=== PATIENT | female | born 1955 | race Caucasian/White ===

== ENCOUNTER 2016-10-01 14:25 | Emergency (ER) | payer OTHER ==
[2016-10-01] MEDS ORDERED: IPRATROPIUM/ALBUTEROL 3 ML DEYVIAL IH ONE ×2 (14:31→15:24)
--- NOTE | 2016-10-01 14:45 | EDPHY ---
H & P <Lance Hylton - Last Filed: 10/01/16 20:18> Stated Complaint: SOB this am .URI for last week. - Personal History Current Tetanus/Diphtheria Vaccine: Unsure Current Tetanus Diphtheria and Acellular Pertussis (TDAP): Unsure Tetanus Vaccine Date: 3 years ago, unsure if diptheia - Medical/Surgical History Hx Asthma: No Hx Chronic Respiratory Disease: No Hx Diabetes: No Hx Cardiac Disease: No Hx Renal Disease: No Hx Cirrhosis: No Hx Alcoholism: No Hx HIV/AIDS: No Hx Splenectomy or Spleen Trauma: No Other PMH: HYpothyroidism, RA, chronic regional pain syndrome. PSH: left knee replaced - Social History Smoking Status: Former smoker <Dina Peterson - Last Filed: 10/01/16 23:08> Time Seen by Provider: 10/01/16 14:35 HPI/ROS: CHIEF COMPLAINT: Shortness of breath, upper respiratory infection HISTORY OF PRESENT ILLNESS: This is a 61-year-old female who states that for the last 12 days she has been ill with ongoing upper respiratory infection symptoms. Nasal congestion, nasal discharge, and cough productive of sputum. She has been running a low-grade fever. She has not seen her primary care physician. She had some vomiting at the beginning of the illness but none for quite some time. She does report that over the last 2-3 days she did not have a fever. She says she has been in bed for most of the last week and half. This morning, the patient developed acute shortness of breath. She reports being unable to even walk into the kitchen. Complaining of generalized weakness. Reports bilateral lower chest discomfort. Also complains of at deep achy pain in her legs like she has lactic acidosis. Patient denies diarrhea, urinary complaints, headache, lightheadedness, syncope , palpitations. REVIEW OF SYSTEMS: Aside from elements discussed in the HPI, a comprehensive 10-point review of systems was reviewed and is negative. PAST MEDICAL HISTORY: Rheumatoid arthritis. Denies COPD, asthma, pulmonary issues, coronary artery disease. SOCIAL HISTORY: Nonsmoker. Sharron Marin is her primary care physician. VITAL SIGNS Reviewed by me. GENERAL: Ill-appearing female. Tachypneic. Audibly wheezing. Very short of breath exertion. HEENT: Atraumatic. Eyes: No icterus, no injection. Mouth: Slightly dry mucous membranes. No erythema or lesions. Neck: supple with no adenopathy. LUNGS: Rhonchi at the right base. Wheezing on the right. Coarse breath sounds on the left. CARDIAC: Tachycardic rate. ABDOMEN: Soft, nontender, nondistended, bowel sounds normal. BACK: No CVA tenderness. EXTREMITIES: No trauma. No edema. Range of motion is normal throughout. NEURO: Alert and oriented, grossly nonfocal. SKIN: Warm and dry, no rash. PSYCHIATRIC: Normal mentation, no agitation. (Dina Peterson) Constitutional: Initial Vital Signs Temperature (C) 36.6 C 10/01/16 14:30 Heart Rate 120 H 10/01/16 14:30 Respiratory Rate 24 H 10/01/16 14:30 Blood Pressure 120/89 H 10/01/16 14:30 O2 Sat (%) 97 10/01/16 14:30 O2 Delivery Mode Room Air O2 (L/minute) 2.5 Allergies/Adverse Reactions: prochlorperazine edisylate [From Compazine] Allergy (Verified 10/01/16 14:34) prochlorperazine maleate [From Compazine] Allergy (Verified 10/01/16 14:34) Home Medications: Medication Instructions Recorded Levothyroxine [Synthroid 112 mcg 119 mcg PO DAILY06 07/10/11 (RX)] Leflunomide [Arava 10 mg (RX)] 09/08/12 buPROPion XL [Wellbutrin 150mg XL] 450 mg PO DAILY 09/08/12 Rituxan 05/20/15 Albuterol [Proventil Inhaler] 1 - 2 puffs IH Q4H #1 mdi 10/01/16 levOFLOXACIN [levAQUIN] 750 mg PO DAILY #10 tab 10/01/16 predniSONE 60 mg PO DAILY #15 tab 10/01/16 Medical Decision Making - Diagnostics Imaging: 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 Please see trace view for full reading and report. Sinus rhythm, no acute ischemic changes ( Lance Hylton) Imaging Results: Imaging Impressions Chest X-Ray 10/01/16 14:44 Impression: Stable negative chest. Chest/Thorax CTA 10/01/16 15:33 Impression: 1. No evidence for pulmonary embolus. 2. Mild bronchitis. Mild bronchial plugging in both lower lobes and right middle lobe. Results called and discussed with Dr. Lance Hylton on 10/01/2016 at 1632 hours. ED Course/Re-evaluation: The patient's care is transferred to [place] at shift change. She remains tachycardic and hypoxic. She has coarse right lower lobe breath sounds but a clear x-ray. She complains of a mild fever at home. She has been lying in bed for several days. I will perform a CT scan to rule out PE and further evaluate for pneumonia. A 2nd lactate, antibiotics and fluids have been ordered. She has also been treated with a nebulized her with moderate improvement. She denies history of COPD or asthma. 4:40 p.m. we discussed the patient's CT results which are reassuring. She is on antibiotics. She is doing much better after her 2nd neb and is saturating 97 % on 4 L. I recommended admission for her tachypnea and hypoxia and tachycardia. Patient declines this and states that she wants to avoid going into the hospital. We will see if she is able to titrate off of oxygen and continue to evaluate. 6:00 p.m. the patient is doing much better. She is saturating 92-95% on room air. She was able to walk and did not desaturate. She continues to refuse admission. She was slightly tachycardic with ambulation but then it resolved. Will discharge her with albuterol, steroids and Levaquin. We discussed strict return precautions. (Lance Hylton) 61-year-old female who is been ill with upper respiratory infection for 12 days now presenting with significant shortness of breath, tachycardia, febrile, tachypneic, or rhonchi at the right base. Patient had a neb started. IV was placed. 2 L of normal saline was administered. EKG was obtained. Laboratory evaluation including CBC, chemistries, and lactic acid were ordered. Chest x-ray was ordered Patients presentation is concerning for acute sepsis. Patients' lactic acid was 3.0. No pneumonia visualized on CXR. Care assumed by Dr Hylton at change of shift. (Dina Peterson) Differential Diagnosis: Partial list of the Differential diagnosis considered include but were not limited to; PE, pneumonia, bronchitis and although unlikely based on the history and physical exam, I also considered pneumothorax, acute coronary disease, dissection. I discussed these differential diagnoses and the plan with the patient as well as the usual and expected course. The patient understands that the diagnosis is provisional and that in medicine we are not always correct and that further workup is often warranted. Usual and customary warnings were given. All of the patient's questions were answered. The patient was instructed to return to the emergency department should the symptoms at all worsen or return, otherwise to followup with the physician as we discussed. (Lance Hylton) - Data Points Laboratory Results: Laboratory Results 10/01/16 15:00 10/01/16 15:00 10/01/16 10/01/16 10/01/16 16:20 15:00 15:00 WBC RBC Hgb Hct MCV MCH MCHC RDW Plt Count MPV Neut % (Auto) Lymph % (Auto) [place] % (Auto) Eos % (Auto) Baso % (Auto) Nucleat RBC Rel Count Absolute Neuts (auto) Absolute Lymphs (auto) Absolute Monos (auto) Absolute Eos (auto) Absolute Basos (auto) Absolute Nucleated RBC Immature Gran % Immature Gran # PT 12.7 SEC SEC (12.0-15.0) INR 0.98 (0.83-1.16) APTT 29.2 SEC SEC (23.0-38.0) D-Dimer VBG Lactic Acid 1.2 mmol/L D mmol/L (0.7-2.1) Sodium 140 mEq/L mEq/L (134-144) Potassium 3.9 mEq/L mEq/L (3.5-5.2) Chloride 104 mEq/L mEq/L (97-110) Carbon Dioxide 20 mEq/l L mEq/l (22-31) Anion Gap 16 mEq/L mEq/L (8-16) BUN 6 mg/dL L mg/dL (7-23) Creatinine 0.7 mg/dL mg/dL (0.6-1.0) Estimated GFR > 60 Glucose 110 mg/dL H mg/dL (70-100) Calcium 9.4 mg/dL mg/dL (8.5-10.4) Total Bilirubin 0.4 mg/dL mg/dL (0.1-1.4) Troponin I < 0.012 ng/mL ng/mL (0-0.034) 10/01/16 10/01/16 10/01/16 15:00 15:00 14:37 WBC 8.57 10^3/uL 10^3/uL (3.80-9.50) RBC 4.54 10^6/uL 10^6/uL (4.18-5.33) Hgb 14.4 g/dL g/dL (12.6-16.3) Hct 42.5 % % (38.0-47.0) MCV 93.6 fL fL (81.5-99.8) MCH 31.7 pg pg (27.9-34.1) MCHC 33.9 g/dL g/dL (32.4-36.7) RDW 13.2 % % (11.5-15.2) Plt Count 382 10^3/uL D 10^3/uL (150-400) MPV 9.1 fL fL (8.7-11.7) Neut % (Auto) 63.8 % % (39.3-74.2) Lymph % (Auto) 23.3 % % (15.0-45.0) [place] % (Auto) 10.4 % % (4.5-13.0) Eos % (Auto) 1.5 % % (0.6-7.6) Baso % (Auto) 0.6 % % (0.3-1.7) Nucleat RBC Rel Count 0.0 % % (0.0-0.2) Absolute Neuts (auto) 5.47 10^3/uL 10^3/uL (1.70-6.50) Absolute Lymphs (auto) 2.00 10^3/uL 10^3/uL (1.00-3.00) Absolute Monos (auto) 0.89 10^3/uL H 10^3/uL (0.30-0.80) Absolute Eos (auto) 0.13 10^3/uL 10^3/uL (0.03-0.40) Absolute Basos (auto) 0.05 10^3/uL 10^3/uL (0.02-0.10) Absolute Nucleated RBC 0.00 10^3/uL 10^3/uL (0-0.01) Immature Gran % 0.4 % % (0.0-1.1) Immature Gran # 0.03 10^3/uL 10^3/uL (0.00-0.10) PT INR APTT D-Dimer < 0.27 ug/mLFEU ug/mLFEU (0.00-0.50) VBG Lactic Acid 3.0 mmol/L H mmol/L (0.7-2.1) Sodium Potassium Chloride Carbon Dioxide Anion Gap BUN Creatinine Estimated GFR Glucose Calcium Total Bilirubin Troponin I Medications Given: Discontinued Medications Albuterol (Proventil Neb) 3 ml IH EDNOW ONE Stop: 10/01/16 15:38 Last Admin: 10/01/16 15:44 Dose: 3 ml Albuterol/Ipratropium (Duoneb) 3 ml IH EDNOW ONE Stop: 10/01/16 14:32 Last Admin: 10/01/16 14:36 Dose: 3 ml Albuterol/Ipratropium (Duoneb) 3 ml IH EDNOW ONE Stop: 10/01/16 15:25 Last Admin: 10/01/16 15:24 Dose: 3 ml Levofloxacin/Dextrose (Levaquin 750 Mg (Premix)) 150 mls @ 100 mls/hr IV EDNOW ONE PRN Reason: Protocol Stop: 10/01/16 16:54 Last Admin: 10/01/16 16:11 Dose: 150 mls Sodium Chloride (Ns) 2,000 mls @ 4,000 mls/hr 30 ml/kg infuse over 30 min ( 2000 ml) IV EDNOW ONE PRN Reason: Protocol Stop: 10/01/16 15:54 Last Admin: 10/01/16 14:50 Dose: 2,000 mls Methylprednisolone Sodium Succinate (Solu-Medrol) 125 mg IVP EDNOW ONE Stop: 10/01/16 15:23 Last Admin: 10/01/16 16:00 Dose: 125 mg Departure <Lance Hylton E - Last Filed: 10/01/16 20:18> <Dina Peterson - Last Filed: 10/01/16 23:08> - Departure Disposition: Home, Routine, Self-Care Clinical Impression: Acute bronchitis Qualifiers: Bronchitis organism: unspecified organism Qualified Code(s): J20.9 - Acute bronchitis, unspecified Condition: Fair Instructions: Acute Bronchitis (ED) Referrals: Sharron Marin MD [Primary Care Provider] - As per Instructions Prescriptions: Albuterol [Proventil Inhaler] 1 - 2 puffs IH Q4H #1 mdi levOFLOXACIN [levAQUIN] 750 mg PO DAILY #10 tab predniSONE 60 mg PO DAILY #15 tab
[2016-10-01 15:07] LABS: % IMMATURE GRANULYOCYTES 0.4 % (0.0-1.1); ABSOLUTE IMMATURE GRANULOCYTES 0.03 10^3/uL (0.00-0.10); ADD DIFF? NO; ADD MORPH? NO; ADD SCAN? NO; ATYPICAL LYMPHOCYTE FLAG 0 (0-99); FRAGMENT RBC FLAG 0 (0-99); HEMATOCRIT 42.5 % (38.0-47.0); HEMOGLOBIN 14.4 g/dL (12.6-16.3); LEFT SHIFT FLG 0 (0-99); LIPEMIA HEMOLYSIS FLAG 90 (0-99); MEAN CELL HEMOGLOBIN 31.7 pg (27.9-34.1); MEAN CELL HEMOGLOBIN CONCENTR. 33.9 g/dL (32.4-36.7); MEAN CELL VOLUME 93.6 fL (81.5-99.8); MEAN PLATELET VOLUME 9.1 fL (8.7-11.7); PLATELET CLUMPS FLAG 10 (0-99); PLATELET COUNT 382 10^3/uL (150-400); RED BLOOD CELL COUNT 4.54 10^6/uL (4.18-5.33); RED CELL DISTRIBUTION WIDTH 13.2 % (11.5-15.2)
[2016-10-01] MEDS ORDERED: IPRATROPIUM/ALBUTEROL 3 ML DEYVIAL ONE (15:16)
[2016-10-01 15:20] LABS: ANION GAP 16 mEq/L (8-16); BILIRUBIN,TOTAL 0.4 mg/dL (0.1-1.4); CALCIUM 9.4 mg/dL (8.5-10.4); CARBON DIOXIDE 20 mEq/l (22-31); CHLORIDE 104 mEq/L (97-110); CREATININE 0.7 mg/dL (0.6-1.0); GLOMERULAR FILTRATION RATE > 60; GLUCOSE 110 mg/dL (70-100); POTASSIUM 3.9 mEq/L (3.5-5.2); SODIUM 140 mEq/L (134-144)
[2016-10-01] MEDS ORDERED: methylPREDNISolone SOD SUCC 125 MG/2 ML VIAL IVP ONE (15:22)
[2016-10-01 15:23] LABS: INR 0.98 (0.83-1.16); PROTIME(PATIENT) 12.7 SEC (12.0-15.0)
[2016-10-01 15:24] LABS: APTT 29.2 SEC (23.0-38.0)
[2016-10-01] MEDS ORDERED: NS 2,000 ML IV ONE (15:25)
--- NOTE | 2016-10-01 15:25 | CPEKG ---
Heart Rate: 99 RR Interval: 606 P-R Interval: 140 QRSD Interval: 94 QT Interval: 336 QTC Interval: 432 P [place]: 75 QRS [place]: 46 T Wave [place]: 36 EKG Severity - BORDERLINE ECG - EKG Impression: SINUS RHYTHM EKG Impression: PROBABLE LEFT ATRIAL ABNORMALITY Electronically Signed By: Lance Hylton 01-Oct-2016 15:42:52
[2016-10-01 15:33] LABS: TROPONIN I < 0.012 ng/mL (0-0.034)
[2016-10-01] MEDS ORDERED: ALBUTEROL 3 ML DEYVIAL ONE (15:36)
[2016-10-01] MEDS ORDERED: ALBUTEROL 3 ML DEYVIAL IH ONE (15:37)
[2016-10-01] MEDS ORDERED: IOPAMIDOL (ISOVUE 370) 100 ML BTL IV ONE (15:44)
[2016-10-01 17:17] VITALS: PULSE 100
[2016-10-01 18:53] VITALS: BP 119/69; RESP 16; TEMP 97.5; O2SAT 96
== END 2016-10-01 18:18 | disposition home or self-care (01) ==
LOC: CED 14:25
DX: J20.9 Acute bronchitis, unspecified (principal); Z87.891 Personal history of nicotine dependence
CPT/HCPCS: 71020-PO; 71275-PO; 80048-PO; 82247-PO; 83605-PO; 84484-PO; 85025-PO; 85378-PO; 85610-PO; 85730-PO; 96365; J1956; Q9967

== ENCOUNTER 2017-06-06 18:10 | Emergency (ER) | payer OTHER ==
[2017-06-06 18:18] VITALS: TEMP 99.1
[2017-06-06] MEDS ORDERED: ONDANSETRON 4 MG/2 ML VIAL IVP ONE (18:21)
[2017-06-06] MEDS ORDERED: NS 1,000 ML IV ONE ×2 (18:21→18:59)
--- NOTE | 2017-06-06 18:40 | EDPHY ---
H & P Time Seen by Provider: 06/06/17 18:15 HPI/ROS: HPI Urinary complaints. 61-year-old female by private vehicle. This patient reports that she developed increased frequency with urination as well as dysuria on . She reports that this worsened and then yesterday she started having some pain in her left flank area. This was followed by continued symptoms today with associated nausea and vomiting. ROS: Constitutional: No fever, no chills. No weakness. Eyes: No discharge. No changes in vision. ENT: No sore throat. No nasal congestion or rhinorrhea. Respiratory: No cough. No shortness of breath. Cardiac: No chest pain, no palpitations. Gastrointestinal: No abdominal pain, no vomiting, no diarrhea. Genitourinary: No hematuria. As above. Musculoskeletal: As above. No neck pain. No myalgias or arthralgias. Skin: No rashes. Neurological: Mild gradual onset headache today. No focal weakness or altered sensation. Past medical history: Hypothyroidism, rheumatoid arthritis, chronic regional pain syndrome, depression. Left knee replacement. Social history: Nonsmoker. No alcohol. 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 Physical Exam: General Appearance: Alert, not in distress but anxious. This patient is responding to questions appropriately and in full sentences. This patient appears well-hydrated and well-nourished. Eyes: Pupils equal and round no pallor or injection. No lid edema, erythema or injection. Respiratory: There are no retractions, lungs are clear to auscultation with good air movement bilaterally. Cardiovascular: Regular rate and rhythm. Borderline tachycardia. No murmur. Gastrointestinal: Abdomen is soft and nontender, no masses, bowel sounds normal. No focal tenderness at McBurney's point. No Abraham sign. Neurological: Motor sensory function is grossly intact. Cranial nerves are normal. Gait is normal. Skin: Warm and dry, no rashes. Musculoskeletal: Neck is supple and nontender. Mild left-sided CVA tenderness on palpation. No right-sided CVA tenderness on palpation. Extremities are symmetrical. All joints range without pain or impingement. Psychiatric: No agitation. No depression. Database: EKG: Imaging: Procedures: Emergency department course: IV placed. Vital signs reviewed. She was started on IV normal saline with 1-2 L to be given over the next 1-2 hours. She has no contraindications to NSAIDs. She will be given a 1 time dose of IV Toradol after verification of a normal creatinine. She was given 4 mg of IV Zofran for nausea. Urine specimen obtained. 7:15 p.m., patient re-evaluated. She was given 30 mg of IV Toradol. She was started on a 2nd L of IV normal saline. I discussed results of her urinalysis and diagnosis of likely pyelonephritis. I discussed antibiotic options. She was started on 750 mg of IV Levaquin. I think she will be okay to be discharged to home. Plan will be to prescribe her this medication daily for the next 5 days. 8:15 p.m., patient re-evaluated. She is feeling much better. She is finishing her 2nd L of fluid and her IV Levaquin. She feels comfortable going home and she is requesting discharge. I discussed observing her further in the emergency department but she declines. She will be prescribed Levaquin and Zofran. Follow-up and return to emergency department precautions were reviewed with her. All of her questions were answered. She was discharged in good condition. Differential Diagnosis: The differential diagnosis on this patient includes but is not limited to urinary tract infection, dehydration, pyelonephritis. This represents a partial list of diagnoses considered. These considerations are based on history , physical exam, past history, reassessment and diagnostic testing. Smoking Status: Former smoker Constitutional: Initial Vital Signs Temperature (C) 37.3 C 06/06/17 18:14 Heart Rate 124 H 06/06/17 18:14 Respiratory Rate 18 06/06/17 18:14 Blood Pressure 159/81 H 06/06/17 18:14 O2 Sat (%) 96 06/06/17 18:14 O2 Delivery Mode Room Air Allergies/Adverse Reactions: prochlorperazine edisylate [From Compazine] Allergy (Verified 06/06/17 18:18) Pt reports shakiness prochlorperazine maleate [From Compazine] Allergy (Verified 06/06/17 18:18) pt reports shakiness Home Medications: Medication Instructions Recorded Arava 10 mg (*) 06/06/17 Ondansetron Odt [Zofran Odt 4 mg 4 mg PO Q4PRN PRN #10 tab 06/06/17 (*)] Remicade Inj 100 mg (*) 06/06/17 Synthroid 06/06/17 Wellbutrin Xl 06/06/17 levOFLOXACIN [Levofloxacin] 750 mg PO DAILY #5 tablet 06/06/17 Medical Decision Making - Data Points Laboratory Results: Laboratory Results 06/06/17 18:40 06/06/17 18:40 06/06/17 06/06/17 06/06/17 18:40 18:40 18:40 WBC 8.04 10^3/uL 10^3/uL (3.80-9.50) RBC 4.41 10^6/uL 10^6/uL (4.18-5.33) Hgb 13.8 g/dL g/dL (12.6-16.3) Hct 40.1 % % (38.0-47.0) MCV 90.9 fL fL (81.5-99.8) MCH 31.3 pg pg (27.9-34.1) MCHC 34.4 g/dL g/dL (32.4-36.7) RDW 14.0 % % (11.5-15.2) Plt Count 300 10^3/uL 10^3/uL (150-400) MPV 8.7 fL fL (8.7-11.7) Neut % (Auto) 82.4 % H % (39.3-74.2) Lymph % (Auto) 4.1 % L % (15.0-45.0) [place] % (Auto) 11.9 % % (4.5-13.0) Eos % (Auto) 0.9 % % (0.6-7.6) Baso % (Auto) 0.5 % % (0.3-1.7) Nucleat RBC Rel Count 0.0 % % (0.0-0.2) Absolute Neuts (auto) 6.62 10^3/uL H 10^3/uL (1.70-6.50) Absolute Lymphs (auto) 0.33 10^3/uL L 10^3/uL (1.00-3.00) Absolute Monos (auto) 0.96 10^3/uL H 10^3/uL (0.30-0.80) Absolute Eos (auto) 0.07 10^3/uL 10^3/uL (0.03-0.40) Absolute Basos (auto) 0.04 10^3/uL 10^3/uL (0.02-0.10) Absolute Nucleated RBC 0.00 10^3/uL 10^3/uL (0-0.01) Immature Gran % 0.2 % % (0.0-1.1) Immature Gran # 0.02 10^3/uL 10^3/uL (0.00-0.10) Sodium 141 mEq/L mEq/L (135-145) Potassium 3.8 mEq/L mEq/L (3.5-5.2) Chloride 108 mEq/L mEq/L (97-110) Carbon Dioxide 19 mEq/l L mEq/l (22-31) Anion Gap 14 mEq/L mEq/L (8-16) BUN 9 mg/dL mg/dL (7-23) Creatinine 0.7 mg/dL mg/dL (0.6-1.0) Estimated GFR > 60 Glucose 150 mg/dL H mg/dL (70-100) Calcium 9.1 mg/dL mg/dL (8.5-10.4) Urine Color DARK YELLOW Urine Appearance HAZY Urine pH 5.5 (5.0-7.5) Ur Specific [place] 1.025 (1.002-1.030) Urine Protein 1+ H (NEGATIVE) Urine Ketones 2+ H (NEGATIVE) Urine Blood NEGATIVE (NEGATIVE) Urine Nitrate NEGATIVE (NEGATIVE) Urine Bilirubin POSITIVE H (NEGATIVE) Urine Urobilinogen 4.0 EU H EU (0.2-1.0) Ur Leukocyte Esterase TRACE H (NEGATIVE) Urine RBC OCCASIONAL /hpf /hpf (0-3) Urine WBC 10-15 /hpf H /hpf (0-3) Ur Epithelial Cells 1+ /lpf /lpf (NONE-1+) Urine Bacteria 3+ /hpf H /hpf (NONE SEEN) Urine Mucus 1+ /lpf /lpf (NONE-1+) Urine Glucose NEGATIVE (NEGATIVE) Medications Given: Discontinued Medications Sodium Chloride (Ns) 1,000 mls @ 0 mls/hr IV EDNOW ONE; Wide Open PRN Reason: Protocol Stop: 06/06/17 18:22 Last Admin: 06/06/17 18:39 Dose: 1,000 mls Sodium Chloride (Ns) 1,000 mls @ 0 mls/hr IV EDNOW ONE; Wide Open PRN Reason: Protocol Stop: 06/06/17 19:00 Last Admin: 06/06/17 19:09 Dose: 1,000 mls Levofloxacin/Dextrose (Levaquin 750 Mg (Premix)) 150 mls @ 100 mls/hr IV EDNOW ONE PRN Reason: Protocol Stop: 06/06/17 20:44 Last Admin: 06/06/17 19:32 Dose: 150 mls Ketorolac Tromethamine (Toradol) 30 mg IVP EDNOW ONE Stop: 06/06/17 19:05 Last Admin: 06/06/17 19:08 Dose: 30 mg Ondansetron HCl (Zofran) 4 mg IVP EDNOW ONE Stop: 06/06/17 18:22 Last Admin: 06/06/17 18:39 Dose: 4 mg Ondansetron HCl (Zofran Odt 4 Mg Prepack#2) 1 btl TAKEHOME EDNOW ONE Stop: 06/06/17 20:39 Last Admin: 06/06/17 20:42 Dose: 1 btl Departure - Departure Disposition: Home, Routine, Self-Care Clinical Impression: Urinary tract infection, Acute pyelonephritis Condition: Good Instructions: Ondansetron (By mouth), Urinary Tract Infection in Women (ED) Additional Instructions: Read and follow provided instructions. Follow-up with your primary care physician in 1-2 days for re-evaluation. Take antibiotic as prescribed through entire course of treatment. You can start taking ibuprofen tomorrow as needed for pain. Ibuprofen dosin mg every 6 hours with meals for the next 3 days only. Take only as needed for pain. Return to the emergency department for worsening symptoms, worsening back pain, fever, nausea and vomiting or other serious concerns. Referrals: Sharron Marin MD [Primary Care Provider] - As per Instructions Prescriptions: levOFLOXACIN [Levofloxacin] 750 mg PO DAILY #5 tablet Ondansetron Odt [Zofran Odt 4 mg (*)] 4 mg PO Q4PRN PRN #10 tab PRN Reason: For Nausea & Vomiting
[2017-06-06 18:47] LABS: PLATELET COUNT 300 10^3/uL (150-400)
[2017-06-06] MEDS ORDERED: KETOROLAC 30 MG/1 ML SDV IVP ONE (19:04)
[2017-06-06] MEDS ORDERED: ONDANSETRON 4MG PREPACK#2 BTL TAKEHOME ONE (20:38)
[2017-06-06 21:02] VITALS: BP 126/77; PULSE 103; RESP 16; O2SAT 94
== END 2017-06-06 20:59 | disposition home or self-care (01) ==
LOC: CED 18:10
DX: N10 Acute pyelonephritis (principal); B96.89 Other specified bacterial agents as the cause of diseases classified elsewhere; B96.20 Unspecified Escherichia coli [E. coli] as the cause of diseases classified elsewhere; E86.9 Volume depletion, unspecified; Z87.891 Personal history of nicotine dependence
CPT/HCPCS: 80048-PO; 81003-PO; 81015-PO; 85025-PO; 96365; J1885; J1956; J2405

== ENCOUNTER → 2018-01-04 | Outpatient (CLI) | payer OTHER | LOC: BMCIMAGING 14:02 | PROVIDERS: ATTEND Internal Medicine Rheumatology | DX: M19.071 Primary osteoarthritis, right ankle and foot (principal); M19.072 Primary osteoarthritis, left ankle and foot; M06.09 Rheumatoid arthritis without rheumatoid factor, multiple sites ==

== ENCOUNTER 2018-07-04 18:31 | Emergency (ER) | payer OTHER ==
[2018-07-04] MEDS ORDERED: AMOXICILLIN/CLAVULANATE POT 875/125 MG TAB PO ONE (18:42)
--- NOTE | 2018-07-04 18:43 | EDPHY ---
H & P Time Seen by Provider: 07/04/18 19:12 HPI/ROS: HPI Fatigue, nausea vomiting, flank pain, urinary symptoms. 62-year-old female by private vehicle. This patient reports that since she has had increased frequency with urination and burning with urination along with left flank pain and nausea with multiple episodes of vomiting over the last 3 days. She called in to her primary care physician on . She does have a history of urinary tract infections. He prescribed her Macrobid over the phone. She has been taking this medication but has continued to be symptomatic as noted. She reports also that she has been feeling very fatigued and has had a gradual onset dull headache which she describes as frontal in similar to headaches she has had in the past. ROS: Constitutional: No fever, no chills. No weakness. Eyes: No discharge. No changes in vision. ENT: No sore throat. No nasal congestion or rhinorrhea. Respiratory: No cough. No shortness of breath. Cardiac: No chest pain, no palpitations. Gastrointestinal: No abdominal pain, as above. He has also had 1 episode of diarrhea. Genitourinary: No hematuria. No dysuria or increased frequency with urination. Musculoskeletal: As above. No neck pain. No myalgias or arthralgias. Skin: No rashes. Neurological: As above. No focal weakness or altered sensation. Past medical history: Hypothyroid. Rheumatoid arthritis which she is on immuno suppressants for, chronic regional pain syndrome, depression, left knee replacement. Social history: She is here by herself. No alcohol. Nonsmoker. 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 Physical Exam: General Appearance: Alert, she appears anxious and up tight but not in distress. This patient is responding to questions appropriately and in full sentences. This patient appears well-hydrated and well-nourished. Eyes: Pupils equal and round no pallor or injection. No lid edema, erythema or injection. Respiratory: There are no retractions, lungs are clear to auscultation with good air movement bilaterally. Cardiovascular: Regular rate and rhythm. Tachycardia. No murmur appreciate. Gastrointestinal: Abdomen is soft and nontender, no masses, bowel sounds normal. No focal tenderness at McBurney's point. No Abraham sign. Neurological: Motor sensory function is grossly intact. Cranial nerves are normal. Gait is normal. Skin: Warm and dry, no rashes. Musculoskeletal: Vague right CVA tenderness on palpation. Extremities are symmetrical. All joints range without pain or impingement. Psychiatric: No agitation. No depression. Database: EKG: Imaging: CT abdomen and pelvis without contrast: No evidence of ureterolithiasis. No significant inflammatory changes regarding her left kidney. This is otherwise an unremarkable study. Results were discussed with staff radiologist Dr. Constantin Conte. Procedures: Emergency department course: Triage vital signs reviewed. She is hypertensive and tachycardic. Temperature is 37.4 degrees. An IV was placed. She was started on IV normal saline with 1 L to be given over the next hour. She will initially be given 0.5 mg of IV hydromorphone and 4 mg of IV Zofran for nausea and left flank pain. CT without contrast will be obtained of her abdomen and pelvis to evaluate for ureterolithiasis. 7:50 p.m., the patient was re-evaluated, she states that she still has some left flank pain but is has improved she says the same about her headache. She is asking for some more pain medication. She will be given another 0.5 mg of IV hydromorphone. Assuming that her creatinine is normal. She has no other contraindications to NSAIDs and will be given 30 mg of IV Toradol. She has had about 750 cc of IV normal saline. Her heart rate has come down to 110 currently. She still seems anxious. 8:00 p.m., the patient will be given 30 mg of IV Toradol. She has a normal creatinine. She is feeling better at this time the distal anxious. I explained that I would not have her microscopic urine study back for some time because it had to be sent to the main lab. Her urine dip indicates possible infection. However, given her symptoms of dysuria and increased frequency of urination and long with left flank pain I will treat her now for pyelonephritis with IV Levaquin. 8:50 p.m., the patient was re-evaluated. She has had 2 L of IV normal saline. She still remains mildly tachycardic at 110-112. She has been afebrile. She reports she feels much better. She denies any headache or flank pain at this time. She is about longterm through her IV Levaquin. Pulse oximetry has been on the low side at around 90% on room air. She is a former smoker. She has not had a cough. There was nothing seen suggestive of an infiltrate in her lower chest on her CT. I did discuss admission with her. A venous lactate was ordered from triage. This was elevated at 2.5. This will be repeated now. I have discussed the results of all of her diagnostic tests with her. Her clinical presentation is consistent with pyelonephritis. I think her tachycardia is more related to dehydration. I do not think she is septic. She currently does not want to be admitted to the hospital. I explained to her that I would revisit her and half an hour and we would discussed further. 9:30 p.m., repeat venous lactate is 0.78. 9:40 p.m., the patient was re-evaluated, her headache has completely resolved. She is feeling much better. She has had 750 mg of IV Levaquin. She remains borderline tachycardic at 100. She has been afebrile. I again discussed admission with her. She does not want to be admitted. She is asking to be discharged. She will follow up with her primary care physician within the next 1-2 days to be re-evaluated. In my professional opinion she understands the risks of declining admission. The patient competently engages in shared decision making. They demonstrate capacitance to make decisions. Return to emergency department precautions were thoroughly reviewed with her. All of her questions were answered. She will be prescribed oral Levaquin for treatment of likely pyelonephritis. Results of her urine culture are pending. She is to follow up on these results through her primary care physician in 2 days. She was discharged from the emergency department in good condition. Of note, the patient's TSH was very low indicating a hyperthyroid state. This may be partially responsible for her tachycardia. The patient has been instructed to follow up with her primary care physician or experimental display builder to properly manage her thyroid condition. Differential Diagnosis: The differential diagnosis on this patient includes but is not limited to urinary tract infection, pyelonephritis, ureterolithiasis, anxiety, dehydration. This represents a partial list of diagnoses considered. These considerations are based on history, physical exam, past history, reassessment and diagnostic testing. Smoking Status: Former smoker Constitutional: Initial Vital Signs Temperature (C) 37.4 C 07/04/18 18:39 Heart Rate 126 H 07/04/18 18:39 Respiratory Rate 20 07/04/18 18:39 Blood Pressure 176/102 H 07/04/18 18:39 O2 Sat (%) 94 07/04/18 18:39 O2 Delivery Mode Room Air Allergies/Adverse Reactions: prochlorperazine edisylate [From Compazine] Allergy (Verified 07/04/18 18:38) Pt reports shakiness prochlorperazine maleate [From Compazine] Allergy (Verified 07/04/18 18:38) pt reports shakiness Home Medications: Medication Instructions Recorded Arava 10 mg (*) 06/06/17 Synthroid 06/06/17 Wellbutrin Xl 06/06/17 Orencia 07/04/18 levOFLOXACIN [levAQUIN (*)] 750 mg PO DAILY #7 tab 07/04/18 Medical Decision Making - Diagnostics Imaging Results: Imaging Impressions Abdomen/Pelvis CT 07/04/18 19:08 Impression: 1. Negative for nephrolithiasis or obstructive uropathy. 2. Gaseous distention of the splenic flexure as well as the stomach may account for left-sided pain. 3. See above report for additional findings. Results called and discussed with Diego Knott MD on 07/04/2018 at 1941 hours. Attention: This CT examination is specifically designed to evaluate patients who are clinically suspected of having acute obstructive uropathy. This examination does not use radiographic contrast, and as such, provides only a limited evaluation of the abdomen, pelvis and retroperitoneum. If there is further clinical suspicion for pathological conditions other than obstructive uropathy, a complete CT evaluation of the abdomen and pelvis utilizing intravenous, oral, and rectal contrast should be considered. - Data Points Laboratory Results: 07/04/18 07/04/18 07/04/18 21:22 19:46 19:44 POC Lactic Acid Julian 0.8 mmol/L D mmol/L 2.5 mmol/L H mmol/L (0.7-2.1) (0.7-2.1) POC Total Bilirubin 0.6 mg/dL mg/dL (0.1-1.4) POC GGT 11 IU/L IU/L (5-65) POC AST 18 IU/L IU/L (14-46) POC ALT 5 IU/L L IU/L (9-52) POC Alk Phosphatase 89 IU/L IU/L (38-126) POC Total Protein 6.9 g/dL g/dL (6.3-8.2) POC Albumin 3.5 g/dL g/dL (3.5-5.0) POC Amylase 29 IU/L L IU/L (30-110) TSH Urine Color Urine Appearance Urine pH Ur Specific [place] Urine Protein Urine Ketones Urine Blood Urine Nitrate Urine Bilirubin Urine Urobilinogen Ur Leukocyte Esterase Urine RBC Urine WBC Ur Epithelial Cells Urine Mucus Urine Glucose 07/04/18 07/04/18 19:07 18:50 POC Lactic Acid Julian POC Total Bilirubin POC GGT POC AST POC ALT POC Alk Phosphatase POC Total Protein POC Albumin POC Amylase TSH < 0.015 uIU/mL L uIU/mL (0.465-4.680) Urine Color CHARLI Urine Appearance HAZY Urine pH 5.0 (5.0-7.5) Ur Specific [place] 1.023 (1.002-1.030) Urine Protein 1+ H (NEGATIVE) Urine Ketones 1+ H (NEGATIVE) Urine Blood NEGATIVE (NEGATIVE) Urine Nitrate NEGATIVE (NEGATIVE) Urine Bilirubin NEGATIVE (NEGATIVE) Urine Urobilinogen 2.0 EU H EU (0.2-1.0) Ur Leukocyte Esterase TRACE H (NEGATIVE) Urine RBC 1-3 /hpf /hpf (0-3) Urine WBC 5-10 /hpf H /hpf (0-3) Ur Epithelial Cells 1+ /lpf /lpf (NONE-1+) Urine Mucus TRACE /lpf /lpf (NONE-1+) Urine Glucose NEGATIVE (NEGATIVE) Medications Given: Discontinued Medications Hydromorphone HCl (Dilaudid) 0.5 mg IVP EDNOW ONE Stop: 07/04/18 19:09 Last Admin: 07/04/18 19:34 Dose: 0.5 mg Hydromorphone HCl (Dilaudid) 0.5 mg IVP EDNOW ONE Stop: 07/04/18 19:58 Last Admin: 07/04/18 19:58 Dose: 0.5 mg Sodium Chloride (Ns) 1,000 mls @ 0 mls/hr IV ONCE ONE; Wide Open PRN Reason: Protocol Stop: 07/04/18 18:59 Last Admin: 07/04/18 19:32 Dose: 1,000 mls Sodium Chloride (Ns) 1,000 mls @ 0 mls/hr IV EDNOW ONE; Wide Open PRN Reason: Protocol Stop: 07/04/18 19:09 Last Admin: 07/04/18 19:33 Dose: 1,000 mls Levofloxacin/Dextrose (Levaquin 750 Mg (Premix)) 150 mls @ 100 mls/hr IV EDNOW ONE PRN Reason: Protocol Stop: 07/04/18 21:37 Last Admin: 07/04/18 20:29 Dose: 150 mls Ketorolac Tromethamine (Toradol) 30 mg IVP EDNOW ONE Stop: 07/04/18 20:03 Last Admin: 07/04/18 20:08 Dose: 30 mg Ondansetron HCl (Zofran) 4 mg IVP EDNOW ONE Stop: 07/04/18 19:09 Last Admin: 07/04/18 19:34 Dose: 4 mg Point of Care Test Results: CBC CBC Collection Date 07/04/18 CBC Collection Time 19:07 WBC 10.48 RBC 4.32 HGB 14.1 HCT 43.1 PLT 306 Neut # 8.02 Neut 76.5 LYMPH # 0.91 LYMPH 8.7 MCV 99.8 Chemistry 07/04/18 19:46 POC Total Bilirubin 0.6 mg/dL mg/dL (0.1-1.4) POC GGT 11 IU/L IU/L (5-65) POC AST 18 IU/L IU/L (14-46) POC ALT 5 IU/L L IU/L (9-52) POC Alk Phosphatase 89 IU/L IU/L (38-126) POC Total Protein 6.9 g/dL g/dL (6.3-8.2) POC Albumin 3.5 g/dL g/dL (3.5-5.0) POC Amylase 29 IU/L L IU/L (30-110) Blood Gas/Lactic Acid-Venous 07/04/18 07/04/18 21:22 19:44 POC Lactic Acid Julian 0.8 mmol/L D mmol/L 2.5 mmol/L H mmol/L (0.7-2.1) (0.7-2.1) Liver Function Tests LFT Collection Date 07/04/18 LFT Collection Time 19:07 Urine Dip Collection Date 07/04/18 Collection Time 18:50 Specific [place] (1.002-1.030) 1.030 PH (5.0-7.5) 5.5 Leukocytes (Negative) Trace Nitrites (Negative) Negative Protein (Negative) Trace Glucose (Negative) Negative Ketones (Negative) 2+ Urobilnogen (0.2-1.0 EU) 0.2 Bilirubin (Negative) Test Not Performed Blood (Negative) Negative Departure - Departure Disposition: Home, Routine, Self-Care Clinical Impression: Left flank pain, Urinary tract infection Condition: Good Instructions: Kidney Infection (ED) Additional Instructions: Read and follow provided instructions. Follow-up with your primary care physician, Dr. Sharron Marin, in 1-2 days for re-evaluation. You will need to follow up on results of your urine culture in 2 days. If these results are negative you can discontinue antibiotics. Your TSH was very low indicating a hyperthyroid state. It is important you follow up with her experimental display builder or your primary care physician for re- evaluation of your thyroid condition and proper treatment. Take antibiotic as prescribed through entire course of treatment. Return to the emergency department for worsening symptoms, fever, worsening back pain, vomiting, lightheadedness or other serious concerns. Referrals: Sharron Marin MD [Primary Care Provider] - As per Instructions Prescriptions: levOFLOXACIN [levAQUIN (*)] 750 mg PO DAILY #7 tab
[2018-07-04] MEDS ORDERED: NS 1,000 ML IV ONE ×2 (18:58→19:08)
[2018-07-04] MEDS ORDERED: ONDANSETRON 4 MG/2 ML VIAL IVP ONE (19:08)
[2018-07-04] MEDS: HYDROmorphONE/DILAUDID 2 MG/ML INJ IVP ONE ×2 (19:34→19:49)
[2018-07-04] MEDS ORDERED: HYDROmorphONE/DILAUDID 2 MG/ML INJ IVP ONE (19:57)
[2018-07-04] MEDS ORDERED: KETOROLAC 30 MG/1 ML SDV IVP ONE (20:02)
[2018-07-04 21:34] VITALS: BP 127/72
== END 2018-07-04 21:50 | disposition home or self-care (01) ==
LOC: CED 18:31
DX: N39.0 Urinary tract infection, site not specified (principal); M06.09 Rheumatoid arthritis without rheumatoid factor, multiple sites; E03.9 Hypothyroidism, unspecified; E86.9 Volume depletion, unspecified
CPT/HCPCS: 74176-PO; 80048-ER; 80076-ER; 82150-ER; 83605-ER; 85025-QW-ER; 85379-QW-ER; 96361-ER; 96365-ER; 96366-ER; 96375-ER; 99285-ER; J1170; J1885; J1956; J2405

== ENCOUNTER 2018-07-07 13:55 | Emergency (ER) | payer OTHER ==
[2018-07-07] MEDS ORDERED: NS 1,000 ML IV ONE (15:11)
[2018-07-07 15:23] LABS: PLATELET COUNT 410 10^3/uL (150-400)
--- NOTE | 2018-07-07 15:26 | EDPHY ---
H & P Stated Complaint: Allergic reaction to abx Time Seen by Provider: 07/07/18 14:25 HPI/ROS: CHIEF COMPLAINT: Rapid heart rate, rash HISTORY OF PRESENT ILLNESS: A 62-year-old female with rheumatoid arthritis presents with rapid heart rate and rash. Onset of left flank pain and dysuria 1 week ago. She was seen on 07[facility]. Urinalysis consistent with UTI. She received 1 dose of Levaquin IV. Urine culture subsequently negative. Onset of a generalized itchy rash last night. Associated with persistent elevated heart rate. Concern for Chacho J Carlos syndrome. She also has a persistent mild headache, unrelieved with Tylenol at home. No fever or respiratory symptoms. Flank pain and dysuria have resolved. REVIEW OF SYSTEMS: complete 10 point ROS reviewed and is negative except for the noted elements in the HPI - Personal History Current Tetanus/Diphtheria Vaccine: Yes Tetanus Vaccine Date: within 10 years - Medical/Surgical History Hx Asthma: No Hx Chronic Respiratory Disease: No Hx Diabetes: No Hx Cardiac Disease: No Hx Renal Disease: No Hx Cirrhosis: No Hx Alcoholism: No Hx HIV/AIDS: No Hx Splenectomy or Spleen Trauma: No Other PMH: Hypothyroidism, RA, chronic regional pain syndrome, depression. PSH : left knee replaced - Social History Smoking Status: Former smoker Additional Social History: Works as a NICU nurse at [employer] - Physical Exam Exam: General Appearance: Alert, pleasant Eyes: Pupils equal and round, no conjunctival pallor or injection ENT, Mouth: Mucous membranes moist Neck: Normal inspection Respiratory: Lungs are clear to auscultation Cardiovascular: Regular rate and rhythm Gastrointestinal: Abdomen is soft and nontender Back: No CVA tenderness Neurological: A&O, nonfocal, normal gait Skin: Warm and dry, generalized hives Extremities: Nontender, no pedal edema Psychiatric: Anxious Constitutional: Initial Vital Signs Temperature (C) 36.7 C 07/07/18 13:58 Heart Rate 121 H 07/07/18 13:58 Respiratory Rate 22 H 07/07/18 13:58 Blood Pressure 128/99 H 07/07/18 13:58 O2 Sat (%) 95 07/07/18 13:58 O2 Delivery Mode Room Air Allergies/Adverse Reactions: levofloxacin [From Levaquin] Allergy (Verified 07/07/18 16:36) prochlorperazine edisylate [From Compazine] Allergy (Verified 07/07/18 14:01) Pt reports shakiness prochlorperazine maleate [From Compazine] Allergy (Verified 07/07/18 14:01) pt reports shakiness Home Medications: Medication Instructions Recorded Arava 10 mg (*) 06/06/17 Synthroid 06/06/17 Wellbutrin Xl 06/06/17 Orencia 07/04/18 levOFLOXACIN [levAQUIN (*)] 750 mg PO DAILY #7 tab 07/04/18 Medical Decision Making - Diagnostics EKG Interpretation: EKG interpreted by me reveals sinus tachycardia, rate 106, no ST or T segment changes. Interpretation: Borderline EKG ED Course/Re-evaluation: Patient presents with urticaria and tachycardia. Clinical history consistent with dehydration. She is not ill appearing and has not had a fever; no evidence of infectious etiology. Patient concern for Alarcon-J Carlos syndrome, but clinically she has hives, without signs/sx of serious rash. IV normal saline 1 L given. Benadryl considered, but the patient is driving herself home , so will defer for now. Feels better after IV fluids and heart rate is down to the 80s. Laboratory results discussed with the patient. She will discontinue Levaquin. No further antibiotics are indicated at this time, given the negative urine culture from . Urinalysis is negative today. I will obtain another urine culture and the patient understands to follow up with her regular doctor in 2 days for urine culture results. Differential Diagnosis: Differential diagnosis includes though is not limited to urinary tract infection , anaphylaxis, thyrotoxicosis, serious infection, electrolyte abnormality. - Data Points Laboratory Results: Laboratory Results 07/07/18 14:45 07/07/18 14:45 07/07/18 07/07/18 07/07/18 16:00 14:46 14:45 WBC RBC Hgb Hct MCV MCH MCHC RDW Plt Count MPV Neut % (Auto) Lymph % (Auto) [place] % (Auto) Eos % (Auto) Baso % (Auto) Nucleat RBC Rel Count Absolute Neuts (auto) Absolute Lymphs (auto) Absolute Monos (auto) Absolute Eos (auto) Absolute Basos (auto) Absolute Nucleated RBC Immature Gran % Immature Gran # Sodium 137 mEq/L mEq/L (135-145) Potassium 3.9 mEq/L mEq/L (3.5-5.2) Chloride 106 mEq/L mEq/L (97-110) Carbon Dioxide 19 mEq/l L mEq/l (22-31) Anion Gap 12 mEq/L mEq/L (6-14) BUN 9 mg/dL mg/dL (7-23) Creatinine 0.8 mg/dL mg/dL (0.6-1.0) Estimated GFR > 60 Glucose 92 mg/dL mg/dL (70-100) Calcium 9.7 mg/dL mg/dL (8.5-10.4) TSH < 0.015 uIU/mL L uIU/mL (0.465-4.680) Urine Color YELLOW Urine Appearance CLEAR Urine pH 5.0 (5.0-7.5) Ur Specific [place] 1.006 (1.002-1.030) Urine Protein NEGATIVE (NEGATIVE) Urine Ketones NEGATIVE (NEGATIVE) Urine Blood NEGATIVE (NEGATIVE) Urine Nitrate NEGATIVE (NEGATIVE) Urine Bilirubin NEGATIVE (NEGATIVE) Urine Urobilinogen NEGATIVE EU EU (0.2-1.0) Ur Leukocyte Esterase NEGATIVE (NEGATIVE) Urine Glucose NEGATIVE (NEGATIVE) 07/07/18 14:45 WBC 8.49 10^3/uL 10^3/uL (3.80-9.50) RBC 4.68 10^6/uL 10^6/uL (4.18-5.33) Hgb 15.2 g/dL g/dL (12.6-16.3) Hct 45.1 % % (38.0-47.0) MCV 96.4 fL fL (81.5-99.8) MCH 32.5 pg pg (27.9-34.1) MCHC 33.7 g/dL g/dL (32.4-36.7) RDW 13.3 % % (11.5-15.2) Plt Count 410 10^3/uL H 10^3/uL (150-400) MPV 9.2 fL fL (8.7-11.7) Neut % (Auto) 49.3 % % (39.3-74.2) Lymph % (Auto) 23.8 % % (15.0-45.0) [place] % (Auto) 9.8 % % (4.5-13.0) Eos % (Auto) 15.8 % H % (0.6-7.6) Baso % (Auto) 0.7 % % (0.3-1.7) Nucleat RBC Rel Count 0.0 % % (0.0-0.2) Absolute Neuts (auto) 4.19 10^3/uL 10^3/uL (1.70-6.50) Absolute Lymphs (auto) 2.02 10^3/uL 10^3/uL (1.00-3.00) Absolute Monos (auto) 0.83 10^3/uL H 10^3/uL (0.30-0.80) Absolute Eos (auto) 1.34 10^3/uL H 10^3/uL (0.03-0.40) Absolute Basos (auto) 0.06 10^3/uL 10^3/uL (0.02-0.10) Absolute Nucleated RBC 0.00 10^3/uL 10^3/uL (0-0.01) Immature Gran % 0.6 % % (0.0-1.1) Immature Gran # 0.05 10^3/uL 10^3/uL (0.00-0.10) Sodium Potassium Chloride Carbon Dioxide Anion Gap BUN Creatinine Estimated GFR Glucose Calcium TSH Urine Color Urine Appearance Urine pH Ur Specific [place] Urine Protein Urine Ketones Urine Blood Urine Nitrate Urine Bilirubin Urine Urobilinogen Ur Leukocyte Esterase Urine Glucose Medications Given: Discontinued Medications Sodium Chloride (Ns) 1,000 mls @ 0 mls/hr IV ONCE ONE; Wide Open PRN Reason: Protocol Stop: 07/07/18 15:12 Last Admin: 07/07/18 15:20 Dose: 1,000 mls Departure - Departure Disposition: Home, Routine, Self-Care Clinical Impression: allergic reaction to Levaquin, Dehydration Condition: Good Instructions: Dehydration (ED), Antibiotic Medication Allergy (ED) Additional Instructions: Take Claritin during the day and Benadryl at night while the rash persists. You are allergic to Levaquin. Stop taking Levaquin. Please list this as an allergy. Drink plenty of fluids. Return for worsening symptoms or any concerns. Call in the morning for your TSH results. Referrals: Sharron Marin MD [Primary Care Provider] - As per Instructions
[2018-07-07 16:45] VITALS: BP 124/89
--- NOTE | 2018-07-07 17:28 | CPEKG ---
Test Reason : OPEN Blood Pressure : / mmHG Vent. Rate : 106 BPM Atrial Rate : 106 BPM P-R Int : 132 ms QRS Dur : 080 ms QT Int : 314 ms P-R-T Axes : 049 026 040 degrees QTc Int : 417 ms Sinus tachycardia Confirmed by Essie Atkins ([id number]) on 07/07/2018 5:27:27 PM Referred By: ESSIE ATKINS Confirmed By:Essie Atkins
== END 2018-07-07 16:43 | disposition home or self-care (01) ==
DX: T36.95XA Adverse effect of unspecified systemic antibiotic, initial encounter (principal); E86.0 Dehydration